=== PATIENT | female | born 1995 | race Caucasian/White ===

== ENCOUNTER 2025-02-04 12:18 | Outpatient (CLI) | payer OTHER ==
--- NOTE | 2025-02-04 14:51 | RADIOLOGY REPORT ---
CLINICAL INFORMATION: Right shoulder pain. TECHNIQUE: Multisequence multiplanar MRI images of the right shoulder were obtained without contrast . COMPARISON: None FINDINGS: Acromioclavicular joint: There is [id number] acromioclavicular hypertrophy and [id number] edema. There is Type 2 acromion. Small amount of fluid in the subacromial / subdeltoid bursa. Rotator cuff tendons: Mild tendinosis of the distal supraspinatus and infraspinatus tendons. No evide nce of tear. Subscapularis and teres minor tendons are intact. Biceps tendon: No significant tendinosis. No evidence of attrition or tear. Labrum: Mild fraying of the superior labrum. Bones: No fracture or focal marrow contusion. Muscles: Normal muscle bulk. No atrophy. Other: No other significant findings. IMPRESSION: 1. [id number] acromioclavicular hypertrophy with mild subacromial / subdeltoid bursitis. 2. Mild rotator cuff tendinosis without evidence of tear. 3. Mild fraying of the superior labrum.
== END 2025-02-04 23:59 | disposition home or self-care (01) ==
LOC: MRI02 12:18
PROVIDERS: ATTEND Nurse Practitioner Family
DX: M75.101 Unspecified rotator cuff tear or rupture of right shoulder, not specified as traumatic (principal); M25.511 Pain in right shoulder; M75.51 Bursitis of right shoulder; M89.311 Hypertrophy of bone, right shoulder
CPT/HCPCS: 73221